=== PATIENT | male | born 2000 | race Caucasian/White ===

== ENCOUNTER 2022-11-24 10:10 | Emergency (ER) | payer OTHER ==
[~2022-11-24] VITALS: Ht 185.4 cm; Wt 152.0 kg
[2022-11-24 10:16] VITALS: O2SAT 99
[2022-11-24] MEDS ORDERED: KETOROLAC 60MG/2ML VIAL IM STA (10:42)
[2022-11-24] MEDS ORDERED: NAPR-681 MT (11:00)
[2022-11-24] MEDS ORDERED: DOXY-456 MT (11:00)
[2022-11-24] MEDS ORDERED: HYDR453.3 TP (11:00)
[2022-11-24 11:27] VITALS: BP 132/77; PULSE 96; RESP 20; TEMP 98.9
== END 2022-11-24 11:28 | disposition home or self-care (01) ==
LOC: ER 10:38
DX: S80.861A Insect bite (nonvenomous), right lower leg, initial encounter (principal); W57.XXXA Bitten or stung by nonvenomous insect and other nonvenomous arthropods, initial encounter; Y93.89 Activity, other specified; Y92.89 Other specified places as the place of occurrence of the external cause; Y99.8 Other external cause status
CPT/HCPCS: 99283

== ENCOUNTER 2023-09-04 13:47 | Emergency (ER) | payer MEDICAID ==
[~2023-09-04] VITALS: Ht 188 cm; Wt 158.0 kg
[~2023-09-04 13:47] MED LIST: DOXY-456 MT; HYDR453.3 TP; NAPR-681 MT
[2023-09-04 14:16] VITALS: BP 158/91; PULSE 95; RESP 18; TEMP 98; O2SAT 97
[2023-09-04] MEDS ORDERED: SULF1TAB48 MT (16:25)
== END 2023-09-04 16:42 | disposition home or self-care (01) ==
LOC: ER 13:47
DX: L05.91 Pilonidal cyst without abscess (principal)
CPT/HCPCS: 99283